=== PATIENT | male | born 1965 | race Caucasian/White ===

== ENCOUNTER 2017-06-15 07:30 | Day surgery (SDC) | payer BC, SELFPAY ==
[2017-06-15] VITALS (7 sets, daily range): BP systolic 134–169; BP diastolic 81–96; PULSE 54–67; RESP 16; TEMP 36.3–36.5; O2SAT 97–99; BMI 25.5
--- NOTE | 2017-06-15 08:41 | COLBX_PTH ---
PATIENT: BENITO MULLINS LOC: EN U#:[id number] AGE/SX: 51/M ROOM: RE06/15/[address]: Dr. Oskar High MD : 1965 BED: DIS: 06/15/2017 SPEC #: [id number] RECD: 06/15/17 15:38 STATUS: NATALYA GONZALEZ #: [id number] THAI: 06/15/17 08:[address]: Oskar High DEPT: SURGICAL PATHOLOGY RECD BY: Bruno Pond ENTERED: 06/16/17 08:54 SP TYPE: COLON BX OTHR DR: Dr. Butch Valdez MD Tissues: Sigmoid colon biopsy Procedures: Surgery Specimen Level IV HEADER OPERATION: Colonoscopy PRE-OP DIAGNOSIS: Screening TISSUE SUBMITTED: Sigmoid polyp MICROSCOPIC DIAGNOSIS Sigmoid colon polyp, biopsy: Benign prolapsing mucosal polyp. AM:[place] 06/17/17 COMMENT Neither adenomatous nor hyperplastic change is seen. MICROSCOPIC DESCRIPTION Slides are reviewed. GROSS DESCRIPTION Received in fixative is one container labeled with the patient's name and designated sigmoid polyp. The specimen consists of one irregular fragment of light marie soft tissue that measures 0.5 x 0.5 x 0.2 cm. The specimen is totally submitted in one cassette. / AM:[place] 06/16/17 TC:5 CPT: 28811
--- NOTE | 2017-06-15 08:48 | PCM.HP.STD ---
Problem List (1) Personal history of colonic polyps Status: Acute History of Present Illness Date of Admission: 06/15/17 The patient is a 51 year old M with a personal history of colonic polyp of the sigmoid colon. Underwent a colonoscopy last year and a tubular villous adenoma was removed. He presents today for a repeat colonoscopy at 1 year. Past Medical History Allergies No Known Allergies Allergy (Verified 06/11/17 11:39) Home Medications: Ambulatory Orders Medication Instructions Recorded Men's 50 Plus Daily Formula Tb 1 cap PO DAILY 06/11/17 Smoking Status: Former smoker Review of Systems Cardiovascular: Denies: Chest Pain, Chest Pressure, Chest Tightness, Palpitations Respiratory: Denies: Cough, Hemoptysis, Shortness of breath at rest, Shortness of breath upon exertion, Wheezing Gastrointestinal: Denies: Abdominal Pain, Constipation, Diarrhea, Hematemesis, Nausea, Melena, Vomiting VTE Information - Inpt Only VTE Present on Admission: No VTE Mechan Device Prophylaxis: None VTE Pharm Prophylaxis ordered?: No Reason prophylaxis not ordered:: Treatment Not Indicated Patient Problems: Active and Suspected Problems Personal history of colonic polyps (Acute) - Physical Exam Lungs: Clear to auscultation Cardiovascular: Regular rate, Regular Rhythm, No murmurs Abdomen: Bowel Sounds Present, Soft, Non Tender, Non-Distended Vital Signs Temp Pulse Resp BP Pulse Ox 97.7 F L 55 L 16 156/88 H 99 06/15/17 07:52 06/15/17 07:52 06/15/17 07:52 06/15/17 07:52 06/15/17 07:52 Oxygen Delivery Method Room Air Weight: 177 lb 14.609 oz Body Mass Index (BMI) 25.5 Assessment/Plan Active and Suspected Problems Personal history of colonic polyps (Acute) My plan is to perform a repeat colonoscopy. We will pay close attention to the area of the sigmoid colon where his previous polyp was located
--- NOTE | 2017-06-15 08:50 | PCM.OPRPT ---
Problem List (1) Personal history of colonic polyps Status: Acute Report of Operation Date of Procedure: 06/15/17 Pre-Operative Diagnosis: z86.010 personal history of colonic polyps Post-Operative Diagnosis: Same Surgery/Procedure Performed:: [id number] colonoscopy with polypectomy Type of Anesthesia:: MAC Anesthesiologist: [place] Description of Procedure: Patient was brought into the endoscopy suite. Placed in the left lateral decubitus position. Given graded anesthesia. Scope was inserted into the rectum and directed through the sigmoid colon, descending colon, transverse colon, ascending colon, to the cecum. Operative findings: 1. Cecum: Normal appearance no mass lesions normal ileocecal valve. 2. Ascending colon: Normal appearance no mass lesions 3. Transverse colon: Normal appearance no mass lesions. 4. Descending colon: Normal appearance no mass lesions. 5. Sigmoid colon: Normal appearance no mass lesions. In the area where his previous polyp was located a small residual polyp was identified. It was removed with snare cautery technique. I knew this was the area since I had previously marked it with dye. I was able to retrieve it through the channel of the scope without difficulty. 6. Rectum: Normal appearance no mass lesions retroflexion did not show any significant internal hemorrhoidal disease. The scope was withdrawn digital rectal exam was performed showing a smooth prostate with no nodules. The patient will need another colonoscopy in one year.
== END 2017-06-15 09:41 | disposition home or self-care (01) ==
LOC: EN 07:31 → AC 07:33
PROVIDERS: Family Provider Family Medicine; PCP Family Medicine; Visit Provider Surgery
PROC: 0DJD8ZZ Inspection of Lower Intestinal Tract, Via Natural or Artificial Opening Endoscopic (ICD-10-PCS; CPT 45378; principal; 2017-06-15 08:25)
DX: D12.5 Benign neoplasm of sigmoid colon (principal); Z86.010 Personal history of colon polyps; Z87.891 Personal history of nicotine dependence
CPT/HCPCS: 45385; 88305; J7120; J1610

== ENCOUNTER 2018-08-02 08:56 | Day surgery (SDC) | payer BC, SELFPAY ==
[2018-08-02 09:12] VITALS: BP 151/93; PULSE 74; RESP 17; TEMP 36.5; O2SAT 97; BMI 25.0
--- NOTE | 2018-08-02 09:40 | H&P.OPEN ---
History of Present Illness Date of Admission: 08/02/18 The patient is a 52 year old M with a known history of a large tubular villous adenoma which was removed 2 years ago and subsequent colonoscopy last year also revealed polyps he presents today for a repeat colonoscopy. Past Medical/Surgical History - Planned Operation Planned Operative Procedure/s: CSCOPE OPEN ACCESS Date of Operative Procedure: 08/02/18 Permit Signed: No S.O.S: No Is This Patient Having a Total Joint: No - Previous Hospitalizations/Surgeries HX Hospitalizations: No HX of Surgeries: CSCOPE X2. 1998 DEVIATED SEPTUM Any Problems With Anesthesia: No You/Your Family Experience Fever (Hyperthermia) With Anes: No Cholinesterase deficiency: No - Cardiovascular Hx Chest Pain within Last 2 months: No Hx of Irregular Heartbeat and/or Afib: No Hx Heart Attack: No Hx Congestive Heart Failure: No Hx Rheumatic Fever: No Hx Hypertension: No Hx Internal Defibrillator: No Hx Pacemaker: No Hx Cardiac Catheterization: No Hx Cardiac Surgery/Stents/Etc.: No Hx Stress Test: Yes - 2009 HX Edema: No Hx Pain in Legs when Walking/Leg Cramps: No - Respiratory Chronic Cough: No HX of Shortness of Breath: No Hoarseness: No Hx Chronic Obstructive Pulmonary Disease (COPD): No Hx Asthma: No Hx Emphysema: No Hx Sleep Apnea: No CPAP: No Hx Oxygen Use at Home: No Hx Respiratory Tract Infection/Cold (presently): No Do You Snore Loudly (louder than talking or can be heard): Yes Do You Often Feel Tired/ Fatigued/ Sleepy Dring Daytime?: No Has Anyone Observed You Stop Breathing During Sleep?: No Result (for STOP score): Negative Hx Smoking: Yes - QUIT 12 YRS AGO Smoking Status: Former smoker - Gastrointestinal Hx Gastroesophageal Reflux: No Hx Gastrointestinal Disorders: No Hx Gastrointestinal Bleed: No Hx Ulcer: No Hx Hiatal Hernia: No Difficulty Chewing/Swallowing: No Recent Onset of Swallowing Problems: No Special diet followed at home: No Hx Unplanned Weight Loss of 20#: No HX Unplanned Weight Gain of 20#: No - Neurological Hx Seizures: No HX Syncope/Blackout Spells/Unconsciousness: No Hx CVA/Stroke: No Hx Transient Ischemic Attacks (TIA): No Hx Multiple Sclerosis: No Hx Parkinson's Disease: No Hx Head/Neck Injury: No - LEFT SHOULDER INJURY CURRENTLY Hx Headaches: No Hx Back Injury/Pain: Yes - BACK INJURY IN 2017/RESOLVED Recent Onset of Speech Difficulty: No Restless Legs: No Does patient have nerve stimulator: No Patient instructed to have device shut off: No Rep notified?: No - Blood Disorder Hx Leukemia: No Bleeding Tendencies: No Hx Deep Vein Thrombosis: No Hx High Cholesterol: No Blood Transmitted Disease: No Hx Hepatitis: No Hx Cirrhosis: No Hx Anemia: No Hx Blood Disorders: No - Reproduction Is Patient Lactating: No Hx Hysterectomy: No Hx Tubal Ligation: No Are You Post Menopause: No - Genitourinary Hx Renal Disease: No - Musculoskeletal Hx Arthritis: No Hx Rheumatoid Arthritis: No Hx Gout: No Recent Onset of an Orthopedic Problem: No - Endocrine Hx Diabetes: No Thyroid Disease: No Hx Steroid Therapy: No - Psycho/Social Hx Substance Use: No Hx Alcohol Use: No Hx Anxiety: No Hx Depression: No Mental Illness: No Hx Dementia: No - Miscellaneous Hx Cancer: No Recent Exposure to Contagious Disease: No Active MRSA: No Hx of C-Diff: No Any Loose Teeth: No Allergies No Known Allergies Allergy (Verified 08/02/18 09:12) - Discharge Is Pt Admitted From a Group Home, or a [facility]: No Who Could Help: FAMILY After D/C, Where Do you Plan to Go: Return Home - Physical Exam General: Alert, Oriented x3 Lungs: Clear to auscultation Cardiovascular: Regular rate, Regular Rhythm, No murmurs Abdomen: Bowel Sounds Present, Soft, Non Tender, Non-Distended Vital Signs Temp Pulse Resp BP Pulse Ox 97.7 F L 74 17 151/93 H 97 08/02/18 09:12 08/02/18 09:12 08/02/18 09:12 08/02/18 09:12 08/02/18 09:12 Oxygen Delivery Method Room Air Weight: 174 lb 2.643 oz Body Mass Index (BMI) 25.0 Assessment/Plan All Active Problems Personal history of colonic polyps (Acute) My plan is to perform a colonoscopy. Surgery Risks - Colonoscopy Risks Include but are not Limited To: Risks include but are not limited to: Bleeding, perforation requiring further surgery, inability to complete colonoscopy requiring barium enema.
[2018-08-02 10:00] VITALS: BP 141/92; BP 151/93; PULSE 64; RESP 18; TEMP 36.8; O2SAT 99
--- NOTE | 2018-08-02 10:02 | OP.ENDO_ITS ---
08/02/2018 Butch Valdez [address] [place] [address] Re : Colonoscopy procedure for Tyler Kaurfang Dear Dr. Valdez This procedure was performed on Thursday, August 02, 2018. My impressions and recommendations are as follows: Impressions : - Diverticulosis in the sigmoid colon. No specimens collected. - Non-bleeding internal hemorrhoids. - A tattoo was seen in the sigmoid colon. A post-polypectomy scar was found at the tattoo site. There was no evidence of residual polyp tissue. No specimens collected. - The examination was otherwise normal. Recommendations : - Discharge patient to home. - Resume previous diet. - Continue present medications. - Repeat colonoscopy in 3 years for surveillance. - Return to primary care physician at appointment to be scheduled. My findings are described in the full procedure note, which is enclosed. If I can be of further assistance, please feel free to contact me at Doctor phone number(s): , Fax: [phone], Work: . Sincerely, MD Oskar Laurent MD 08/02/2018 10:02:13 AM This report has been signed electronically.
[2018-08-02 10:05] VITALS: BP 124/82; BP 151/93; PULSE 63; RESP 18; O2SAT 96
[2018-08-02 10:10] VITALS: BP 149/98; BP 151/93; PULSE 63; RESP 18; O2SAT 97
[2018-08-02 10:15] VITALS: BP 142/97; BP 151/93; PULSE 64; RESP 18; TEMP 36.9; O2SAT 94
[2018-08-02 10:21] VITALS: BP 151/93
== END 2018-08-02 10:45 | disposition home or self-care (01) ==
LOC: EN 08:58 → AC 09:00
PROVIDERS: Family Provider Family Medicine; PCP Family Medicine; Referring Provider Surgery; Visit Provider Surgery
PROC: 0DJD8ZZ Inspection of Lower Intestinal Tract, Via Natural or Artificial Opening Endoscopic (ICD-10-PCS; CPT 45378; principal; 2018-08-02 09:25)
DX: Z86.010 Personal history of colon polyps (principal); K57.30 Diverticulosis of large intestine without perforation or abscess without bleeding; K64.8 Other hemorrhoids; Z87.891 Personal history of nicotine dependence
CPT/HCPCS: 45378; J7120; J1610